=== PATIENT | male | born 1985 ===

== ENCOUNTER 2023-05-11 15:51 | Emergency (ER) | payer SELFPAY ==
[~2023-05-11] VITALS: Ht 167.6 cm; Wt 68.0 kg
[2023-05-11] MEDS ORDERED: IV NORMAL SALINE 1000 ML BAG IV ONE ×2 (16:15→17:15)
[2023-05-11 16:23] LABS: VBG BASE EXCESS -0.7 mmol/L (-3-3); VBG HCO3 24.3 mmol/L (22-27); VBG MetHb 0.2 %; VBG O2HB 75.3 %; VBG PCO2 41.4 mmHg (40-52); VBG PH 7.386 (7.31-7.41); VBG PO2 39.3 mmHg (30-50); VBG TOTAL HEMOGLOBIN 17.3 G/dL (12.0-16.0); VENT MODE, VBG Room Air
[2023-05-11 16:33] LABS: BASOPHILS # (AUTO) 0.3 K/UL (0.0-0.2); BASOPHILS % (AUTO) 3.7 % (0.0-2.0); EOSINOPHILS # (AUTO) 0.1 K/uL (0.0-0.7); EOSINOPHILS % (AUTO) 1.3 % (0.0-7.0); HEMATOCRIT 45.2 % (36.7-47.1); HEMOGLOBIN 15.9 g/dL (12.5-16.3); MEAN CORPUSCULAR HEMOGLOBIN 30.4 uug (23.8-33.4); MEAN CORPUSCULAR HGB CONC 35 g/dL (32.5-36.3); MEAN CORPUSCULAR VOLUME 86.4 fL (73.0-96.2); MONOCYTES # (AUTO) 0.4 K/uL (0.1-1.30); MONOCYTES % (AUTO) 4.9 % (0.0-11.0); NEUTROPHILS # (AUTO) 5.8 K/uL (1.8-8.9); NEUTROPHILS % (AUTO) 67.1 % (38.5-71.5); PLATELET COUNT (AUTO) 171 K/uL (152-348); RED BLOOD CELL COUNT(AUTO) 5.23 MIL/uL (4.06-5.63); RED CELL DISTRIBUTION WIDTH 12.9 % (12.1-16.2); WHITE BLOOD COUNT (AUTO) 8.7 K/uL (3.6-10.2)
[2023-05-11 16:37] LABS: DIFFERENTIAL COMMENT 1
[2023-05-11 16:46] LABS: CALCIUM 8.9 mg/dL (8.5-10.1); CARBON DIOXIDE 28 mmol/L (21-32); CHLORIDE 98 mmol/L (98-107); CREATININE 0.9 mg/dL (0.6-1.3); POTASSIUM 3.9 mmol/L (3.5-5.1); SODIUM SERUM 134 mmol/L (136-145); UREA NITROGEN, BLOOD 10 mg/dL (7-18)
[2023-05-11 16:52] LABS: ALANINE AMINOTRANSFERASE 29 U/L (16-63); ALBUMIN 3.6 g/dL (3.4-5.0); ALKALINE PHOSPHATASE 78 U/L (50-136); ASPARTATE AMINOTRANSFERASE 6 U/L (15-37); LIPASE 120 U/L (73-393); TOTAL PROTEIN, SERUM 6.5 g/dL (6.4-8.2)
[2023-05-11 16:56] LABS: GLUCOSE 473 mg/dL (74-106)
[2023-05-11] MEDS ORDERED: INSULIN REGULAR, HUMAN 300 UNIT/3 ML VIAL IV ONE (17:00)
[2023-05-11] MEDS ORDERED: HUM INSULIN NPH/REG INSULIN HM 70/30 1000 UNITS/10 ML VIAL SQ ONE (17:07)
[2023-05-11] MEDS ORDERED: METF-440 PO (17:11)
[2023-05-11 17:14] LABS: ACETONE, SERUM NEGATIVE (NEGATIVE)
[2023-05-11] MEDS ORDERED: INSULIN REGULAR, HUMAN 300 UNIT/3 ML VIAL ONE (17:17)
[2023-05-11 19:23] VITALS: BP 121/76; TEMP 97.9; O2SAT 95
== END 2023-05-11 19:05 | disposition home or self-care (01) ==
LOC: ER 15:51
DX: E11.65 Type 2 diabetes mellitus with hyperglycemia (principal); R07.89 Other chest pain; Z79.84 Long term (current) use of oral hypoglycemic drugs
CPT/HCPCS: 99284; 96374; 80053; 82009; 83690; 85025; 93005; 36600; J7040; J1815 ×2; A4663